=== PATIENT | male | born 1990 | race African-American/Black ===

== ENCOUNTER 2018-05-06 10:27 | Emergency (ER) | payer OTHER | END 2018-05-06 11:44 | disposition home or self-care (01) | LOC: M ED 10:27 | DX: S81.832A Puncture wound without foreign body, left lower leg, initial encounter (principal); W54.0XXA Bitten by dog, initial encounter; Y92.410 Unspecified street and highway as the place of occurrence of the external cause | CPT/HCPCS: 99283 ==